=== PATIENT | male | born 1995 | race Caucasian/White ===

== ENCOUNTER → 2022-05-14 08:06 | Outpatient (BNVA) | payer BC, MEDICAID, SELFPAY | PROVIDERS: Visit Provider Family Medicine | DX: Z00.00 Encounter for general adult medical examination without abnormal findings (principal); G89.29 Other chronic pain; R79.89 Other specified abnormal findings of blood chemistry | CPT/HCPCS: 80053; 82040; 84270; 84403; 84443; 85025 ==

== ENCOUNTER → 2023-02-14 11:37 | Outpatient (BNVA) | payer BC, MEDICAID, SELFPAY | PROVIDERS: PCP Nurse Practitioner; Visit Provider Nurse Practitioner | DX: R79.89 Other specified abnormal findings of blood chemistry (principal); H60.92 Unspecified otitis externa, left ear | CPT/HCPCS: 84403 ==